=== PATIENT | female | born 1965 | race Caucasian/White ===

== ENCOUNTER 2022-11-18 09:45 | Day surgery (SDC) | payer BC ==
[~2022-11-18 09:45] MED LIST: Metoclopramide 10 MG/2 ML SDV IV PRN; Sodium Chloride 0.9% 1,000 ML IV SCH
== END 2022-11-18 13:55 | disposition home or self-care (01) ==
LOC: LB.SDS 09:45
PROVIDERS: ATTEND Surgery
DX: Z12.11 Encounter for screening for malignant neoplasm of colon (principal); D12.2 Benign neoplasm of ascending colon; I10 Essential (primary) hypertension; E11.9 Type 2 diabetes mellitus without complications; Z88.8 Allergy status to other drugs, medicaments and biological substances; Z80.0 Family history of malignant neoplasm of digestive organs
CPT/HCPCS: 82947; 88305; J2704; J7030

== ENCOUNTER 2024-03-26 07:39 | Day surgery (SDC) | payer BC ==
[~2024-03-26 07:39] MED LIST changes: -Sodium Chloride 0.9% 1,000 ML IV SCH
[2024-03-26] MEDS: Sodium Chloride 0.9% 1,000 ML IV SCH (08:38)
[2024-03-26] MEDS ORDERED: Propofol 200 MG/20 ML SDV ONE (09:30)
== END 2024-03-26 10:51 | disposition home or self-care (01) ==
LOC: LB.SDS 07:39
PROVIDERS: ATTEND Surgery
DX: Z12.11 Encounter for screening for malignant neoplasm of colon (principal); D12.2 Benign neoplasm of ascending colon; Z80.0 Family history of malignant neoplasm of digestive organs; Z85.038 Personal history of other malignant neoplasm of large intestine; I10 Essential (primary) hypertension; E11.9 Type 2 diabetes mellitus without complications; Z88.8 Allergy status to other drugs, medicaments and biological substances
CPT/HCPCS: 45385; 82947; 88305; J2704; J7030